=== PATIENT | male | born 1985 | race Hispanic/Latino ===

== ENCOUNTER 2019-09-21 22:35 | Emergency (ER) | payer BC, OTHER ==
[~2019-09-21 22:35] MED LIST: Iopamidol 370 76% 100 ML VIAL ONE
[2019-09-21] MEDS ORDERED: Mag-Al Plus 1200 MG/1200 MG/120 MG/30 ML UDCUP ONE (22:54)
[2019-09-21] MEDS ORDERED: Lidocaine Viscous Sol 2% 15 ml UD Cup ONE (22:54)
[2019-09-21] MEDS ORDERED: Ketorolac Tromethamine 30 MG/ML VIAL ONE (22:54)
[2019-09-21 23:13] LABS: #Basophils 0.1 thou/uL (0.0-0.2); #Eosinphils 0.1 thou/uL (0.0-0.7); #Lymphocytes 5.3 thou/uL (1.20-3.40); #Monocytes 0.6 thou/uL (0.11-0.59); #Neutrophils 5.8 thou/uL (1.40-6.50); %Eosinophils 0.8 % (0.0-10.0); %Lymphocytes 44.5 % (21.0-51.0); %Monocytes 5.2 % (0.0-10.0); %Neutrophils 48.5 % (42.0-75.0); Hemoglobin 13.7 g/dL (14.0-18.0); Mean Corpuscular Hemoglobin 29.4 pg (27.0-31.0); Mean Corpuscular Volume 89.2 fL (78.0-98.0); Mean Platelet Volume 6.1 fL (7.4-10.4); Platelet Count 310 thou/uL (130-400); RBC Distribution Width 11.6 % (11.5-14.5); Red Blood Cell (RBC) Count 4.66 mill/uL (4.70-6.10); White Blood Cell (WBC) Count 11.9 thou/uL (4.8-10.8)
[2019-09-21 23:25] LABS: ALT (SGPT) 14 U/L (8-55); AST (SGOT) 10 U/L (5-34); Albumin 4.2 g/dL (3.5-5.0); Alkaline Phosphatase 82 U/L (40-110); Anion Gap 13 mmol/L (10-20); BUN (Urea Nitrogen) 22 mg/dL (8.9-20.6); Bilirubin, Total 0.3 mg/dL (0.2-1.2); CK (CPK) 46 U/L (30-200); Calc. Creatinine Clearance 0 mL/min (70-130); Calcium 9.2 mg/dL (7.8-10.44); Carbon Dioxide 27 mmol/L (22-29); Chloride 106 mmol/L (98-107); Estimated GFR-MDRD Greater than 90; Globulin 2.4 g/dL (2.4-3.5); Glucose 92 mg/dL (70-105); Lipase 17 U/L (8-78); Potassium 4.1 mmol/L (3.5-5.1); Protein, Total 6.6 g/dL (6.0-8.3); Sodium 142 mmol/L (136-145)
[2019-09-21 23:44] LABS: Bilirubin Negative (Negative); Blood, Urine Negative (Negative); Clarity Slightly Cloudy (Clear); Glucose, Urine (Dipstick) Negative (Negative); Leukocyte Negative (Negative); Nitrite Negative (Negative); Protein, Urine (Dipstick) Negative (Neg-Trace); Urobilinogen 0.2 mg/dL (Less than 2)
[2019-09-22] MEDS ORDERED: Dicyclomine 20 MG TAB ONE (00:19)
--- NOTE | 2019-09-22 08:05 | CT ---
PRELIMINARY REPORT/[facility]/EMERGENCY AFTER HOURS PROCEDURE Receipt of this report by the clinical staff was confirmed with Torsten Torres RN by Geovanna Saavedra on Sep 00:38:00 CHAIR MAKER. Addendum electronically signed by Geovanna Saavedra on September 22, 2019 12:38:49 AM CHAIR MAKER EXAM: CT Abdomen and Pelvis with Intravenous Contrast CLINICAL HISTORY: EPIGASTRIC ABD PAIN X 1WK CONTRAST: With; ISO 370, 100mL COMPARISON: None provided. FINDINGS: LUNG BASES: No basilar airspace consolidation or pleural effusion. LIVER: Unremarkable. GALLBLADDER AND BILE DUCTS: Mild hyperenhancement of the gallbladder mucosa. No calcified stone. No d uctal dilation. PANCREAS: Unremarkable. SPLEEN: Unremarkable. ADRENAL GLANDS: Unremarkable. KIDNEYS, URETERS, AND BLADDER: Unremarkable. No hydronephrosis or nephrolithiasis. No ureteral or delaney dder calculi. STOMACH AND BOWEL: No obstruction. No wall thickening. No CT evidence of colitis or acute diverticuli tis. APPENDIX: No CT evidence for appendicitis. PERITONEUM: No free fluid. No free air. LYMPH NODES: No lymphadenopathy. REPRODUCTIVE: Unremarkable as visualized. VASCULATURE: No aortic aneurysm. BONES: No fracture or suspicious osseous abnormality. ABDOMINAL WALL AND SOFT TISSUES: Unremarkable. IMPRESSION: Mild hyperenhancement of the gallbladder fundal mucosa. Recommend correlation with right upper quadr ant pain and consider a right upper quadrant ultrasound if there is concern for and early acute cholecystitis. ELECTRONICALLY SIGNED BY: Alonso Saavedra MD Sep 22, 2019 12:35:21 AM CHAIR MAKER This report is intended for review by the ordering physician only, in accordance of law. If you recei ve this report in error, please call [facility] at [phone]. FINAL REPORT CT ABDOMEN AND PELVIS PERFORMED ON AN EMERGENCY BASIS: Date: 09/22/2019 Time: 0003 hours HISTORY: Abdomen pain. FINDINGS: Agree with the preliminary report by Dr. Saavedra from [facility]. No evidence of acute a ppendicitis. Large amount of stool throughout the colon may reflect constipation. Gallbladder is incompletely distended, although wall thickness is upper limits of normal. Clinical correlation regar ding other signs of symptoms of acute cholecystitis is required. Code QA. Transcribed Date/Time: 09/22/2019 8:42 AM
== END 2019-09-22 00:23 | disposition home or self-care (01) ==
LOC: BURERS 22:35
DX: K29.00 Acute gastritis without bleeding (principal); Z87.891 Personal history of nicotine dependence
CPT/HCPCS: 74177; 80053; 81003; 82550; 83690; 85025; 93005; 96374; J1885; Q9967

== ENCOUNTER 2021-03-20 21:42 | Emergency (ER) | payer OTHER ==
[2021-03-20] MEDS ORDERED: Bupivacaine 0.5% 10 ML VIAL ONE (22:08)
[2021-03-20] MEDS ORDERED: Midazolam HCl 2 mg/2 ml Vial ONE (22:16)
[2021-03-20] MEDS ORDERED: Fentanyl 100 MCG/2 ML VIAL ONE (22:16)
[2021-03-20] MEDS ORDERED: Ketorolac Tromethamine 30 MG/ML VIAL ONE (22:16)
[2021-03-20] MEDS ORDERED: Ondansetron PF 4 MG/2 ML Vial ONE (22:16)
== END 2021-03-20 23:22 | disposition home or self-care (01) ==
LOC: BURERS 21:42
DX: S43.015A Anterior dislocation of left humerus, initial encounter (principal); Z87.891 Personal history of nicotine dependence; Y93.64 Activity, baseball
CPT/HCPCS: 23650; 96374; 96375; J1885; J2250; J2405; J3010; J3490

== ENCOUNTER 2024-05-30 21:23 | Emergency (ER) | payer OTHER, SELFPAY ==
[2024-05-30] MEDS ORDERED: Ketamine 50 MG/ML (10ML VIAL) ONE (21:49)
== END 2024-05-30 22:45 | disposition short-term general hospital (02) ==
LOC: BURERS 21:23
DX: S43.015A Anterior dislocation of left humerus, initial encounter (principal); Z87.891 Personal history of nicotine dependence; X58.XXXA Exposure to other specified factors, initial encounter
CPT/HCPCS: 99152